=== PATIENT | female | born 1980 | race Caucasian/White ===

== ENCOUNTER 2018-09-14 14:52 | Emergency (ER) | payer SELFPAY ==
[2018-09-14] MEDS ORDERED: CODEINE 30MG/APAP 300MG TAB ONE (16:17)
[2018-09-14] MEDS ORDERED: TETANUS & DIPHTHERIA TOX,ADULT 0.5 ML VIAL ONE (16:18)
--- NOTE | 2018-09-14 16:24 | EDPHYS ---
Physician Documentation [facility] Name: Rebeca Rocha Age: 38 yrs Sex: Female : 1980 Arrival Date: 09/14/2018 Time: 14:55 Bed 7 Private MD: ED Physician Jay Herzog HPI: 09/14 16:04 This 38 yrs old Female presents to ER via Ambulatory with complaints of Hand pm1 Burn. 16:04 The patient presents with a burn as a result of hot grease, while cooking, at home, is pm1 located on the palm of right hand. Onset: The symptoms/episode began/occurred just prior to arrival. Burn type and severity: 2nd degree: approximately 0.2% total body surface area of second degree injury. Associated signs and symptoms: none. Pertinent negatives: singed hair at nares, soot at nares, The patient did not suffer any apparent inhalation injury, The patient had no loss of consciousness. The patient has not experienced similar symptoms in the past. The patient has not recently seen a physician. 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 - Social history:: Smoking status: Patient uses tobacco products, smokes one pack cigarettes per day. - Ebola Screening: : No symptoms or risks identified at this time. ROS: 16:04 Constitutional: Negative for fever, chills, and weight loss, Eyes: Negative for injury, pm1 pain, redness, and discharge, ENT: Negative for injury, pain, and discharge, Neck: Negative for injury, pain, and swelling, Cardiovascular: Negative for chest pain, palpitations, and edema, Respiratory: Negative for shortness of breath, cough, wheezing, and pleuritic chest pain, Abdomen/GI: Negative for abdominal pain, nausea, vomiting, diarrhea, and constipation, Back: Negative for injury and pain, MS/Extremity: Negative for injury and deformity. 16:04 Neuro: Negative for headache, weakness, numbness, tingling, and seizure. 16:04 Skin: Positive for burn, of the palm of right hand. Exam: 16:04 Constitutional: This is a well developed, well nourished patient who is awake, alert, pm1 and in no acute distress. 16:04 Head/Face: Normocephalic, atraumatic. 16:04 Cardiovascular: Regular rate and rhythm with a normal S1 and S2. No gallops, murmurs, or rubs. No pulse deficits. Respiratory: Lungs have equal breath sounds bilaterally, clear to auscultation and percussion. No rales, rhonchi or wheezes noted. No increased work of breathing, no retractions or nasal flaring. 16:04 Skin: Appearance: normal except for affected area, injury, burn(s), 2nd degree burn injury covers approximately 0.2% of the total body surface area, and is located on the palm of right hand to 2nd and 3rd finger. 16:04 Neuro: Orientation: is normal, Motor: is normal, moves all fours, Sensation: is normal, no obvious gross deficits, Gait: is steady, at a normal pace, without difficulty. Vital Signs: 14:56 BP 141 / 95; Pulse 113; Resp 16; Temp 97.4; Pulse Ox 98% on R/A; Weight 72.57 kg; la1 Height 5 ft. 6 in. (167.64 cm); 17:07 BP 135 / 89; Pulse 89; Resp 17 S; Temp 97.6(O); Pulse Ox 99% on R/A; ca1 14:56 Body Mass Index 25.82 (72.57 kg, 167.64 cm) la1 MDM: 15:16 Patient medically screened. pm1 16:04 ED course: Patient offered Morphine IM and IV. Patient refused. Patient wants Tylenol pm1 #3 for her pain. 16:18 Data reviewed: vital signs. Data interpreted: Pulse oximetry: on room air is 98 %. pm1 Interpretation: normal. Counseling: I had a detailed discussion with the patient and/or guardian regarding: the historical points, exam findings, and any diagnostic results supporting the discharge/admit diagnosis, the need for outpatient follow up, Burn clinic for reevaluation and treatment, to return to the emergency department if symptoms worsen or persist or if there are any questions or concerns that arise at home. 09/14 16:18 Order name: Wound Care; Complete Time: 16:30 pm1 Administered Medications: 16:04 Drug: Tylenol #3 (300 mg-30 mg) 1 tablet Route: PO; ca1 16:39 Follow up: Response: No adverse reaction; Pain is unchanged, physician notified ca1 16:06 CANCELLED (Patient Refused; Pt had Tetanus shot in 2017): Tetanus-Diphtheria Toxoid ca1 Adult 0.5 ml IM once 16:39 Drug: Zofran 4 mg Route: PO; ca1 17:07 Follow up: Response: No adverse reaction ca1 16:45 Drug: morphine 4 mg Route: IM; Site: right deltoid; ca1 17:07 Follow up: Response: No adverse reaction; Pain is decreased ca1 Disposition: 09/14/18 16:23 Discharged to Home. Impression: Burn of second degree of right hand, unspecified site. - Condition is Stable. - Discharge Instructions: Burn Care, Adult, Second-Degree Burn. - Prescriptions for Tylenol- Codeine #3 300-30 mg Oral Tablet - take 2 tablet by ORAL route every 6 hours As needed; 30 tablet. - Medication Reconciliation Form, Thank You Letter, Antibiotic Education, Prescription Opioid Use, Work release form form. - Follow up: Emergency Department; When: As needed; Reason: Worsening of condition. Follow up: Private Physician; When: 2 - 3 days; Reason: Recheck today's complaints, Continuance of care, Re-evaluation by your physician. - Problem is new. - Symptoms have improved. - Notes: Apply topical bacitracin 3 times per day to your burn injury. Follow up at the following clinic: [facility] [address] [place] [address] 8th floor 8AM - 4:30 PM M - F [phone] Addendum: 09/19/2018 02:09 Co-signature as Attending Physician, Jay Herzog MD. m a2 Signatures: Ricki Balderas, RN RN la1 Blayne Cannon, NEDA LOADING CHECKER pm1 Jay Herzog MD MD ma2 Snow Blevins RN RN ca1 Corrections: (The following items were deleted from the chart) 09/14 16:06 15:25 Tetanus-Diphtheria Toxoid Adult 0.5 ml IM once ordered. pm1 ca1 17:10 16:23 09/14/2018 16:23 Discharged to Home. Impression: Burn of second degree of right ca1 hand, unspecified site. Condition is Stable. Forms are Medication Reconciliation Form, Thank You Letter, Antibiotic Education, Prescription Opioid Use. Follow up: Emergency Department; When: As needed; Reason: Worsening of condition. Follow up: Private Physician; When: 2 - 3 days; Reason: Recheck today's complaints, Continuance of care, Re-evaluation by your physician. Problem is new. Symptoms have improved. pm1
--- NOTE | 2018-09-14 16:24 | ER ---
Nurse's Notes [facility] Name: Rebeca Rocha Age: 38 yrs Sex: Female : 1980 Arrival Date: 09/14/2018 Time: 14:55 Bed 7 Private MD: Diagnosis: Burn of second degree of right hand, unspecified site Presentation: 09/14 14:57 Presenting complaint: Patient states: I burned my right hand in grease at home, la1 blistering burn to to right fingers and hand. I took 800mg ibuprofen at home and its not helping at all. Transition of care: patient was not received from another setting of care. Onset of symptoms was September 14, 2018. Risk Assessment: Do you want to hurt yourself or someone else? Patient reports no desire to harm self or others. Initial Sepsis Screen: Does the patient meet any 2 criteria? No. Patient's initial sepsis screen is negative. Does the patient have a suspected source of infection? No. Patient's initial sepsis screen is negative. Care prior to arrival: None. 14:57 Method Of Arrival: Ambulatory la1 14:57 Acuity: ASTON 4 la1 Triage Assessment: 15:16 General: Appears in no apparent distress. Behavior is cooperative, appropriate for age, ca1 crying. Respiratory: Airway is patent Respiratory effort is even, unlabored, Respiratory pattern is regular, symmetrical, Breath sounds are clear bilaterally. Injury Description: Burn was sustained less than 30 minutes ago. Patient sustained second-degree burn(s) to Right first web space and outer aspect of right palm and palm of right hand. 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 - Social history:: Smoking status: Patient uses tobacco products, smokes one pack cigarettes per day. - Ebola Screening: : No symptoms or risks identified at this time. Screenin:13 Abuse screen: Denies threats or abuse. Denies injuries from another. Nutritional ca1 screening: No deficits noted. Tuberculosis screening: No symptoms or risk factors identified. Fall Risk None identified. Assessment: 15:13 General: Appears in no apparent distress. Behavior is cooperative, crying. Pain: ca1 Complains of pain in right hand Pain currently is 10 out of 10 on a pain scale. Neuro: Level of Consciousness is awake, alert, obeys commands, Oriented to person, place, time, situation. Derm: Skin is healthy with good turgor, Skin is pink, warm \T\ dry. blisters from burn on palmar aspect of R hand. Musculoskeletal: Circulation, motion, and sensation intact. Capillary refill < 3 seconds, Range of motion: intact in all extremities. Injury Description: Burn was sustained less than 30 minutes ago. Patient sustained second-degree burn(s) to palm of right hand, outer aspect of right palm and Right first web space. 16:40 Reassessment: Patient appears in no apparent distress at this time. Patient is alert, ca1 oriented x 3, equal unlabored respirations, skin warm/dry/pink. Attempted to dress wound. Pt complains of pain and refused dressing. Notified provider. Meds ordered. 17:07 Reassessment: Patient appears in no apparent distress at this time. Patient is alert, ca1 oriented x 3, equal unlabored respirations, skin warm/dry/pink. Dressed wound. Applied triple antibiotic on burnt area, dressed wound. PT tolerated well. Vital Signs: 14:56 BP 141 / 95; Pulse 113; Resp 16; Temp 97.4; Pulse Ox 98% on R/A; Weight 72.57 kg; la1 Height 5 ft. 6 in. (167.64 cm); 17:07 BP 135 / 89; Pulse 89; Resp 17 S; Temp 97.6(O); Pulse Ox 99% on R/A; ca1 14:56 Body Mass Index 25.82 (72.57 kg, 167.64 cm) la1 ED Course: 14:55 Patient arrived in ED. mr 14:57 Arm band placed on left wrist. la1 14:58 Triage completed. la1 15:00 Snow Blevins, RICARDO is Primary Nurse. ca1 15:03 Blayne Cannon NP is PHCP. pm1 15:03 Jay Herzog MD is Attending Physician. pm1 15:13 Patient has correct armband on for positive identification. Bed in low position. Call ca1 light in reach. Side rails up X 1. Pulse ox on. NIBP on. hand iced water. 17:05 No provider procedures requiring assistance completed. Patient did not have IV access ca1 during this emergency room visit. Dressings: Kerlix X 1; right hand non-adherent dressing x 2 right hand. Administered Medications: 16:04 Drug: Tylenol #3 (300 mg-30 mg) 1 tablet Route: PO; ca1 16:39 Follow up: Response: No adverse reaction; Pain is unchanged, physician notified ca1 16:06 CANCELLED (Patient Refused; Pt had Tetanus shot in 2017): Tetanus-Diphtheria Toxoid ca1 Adult 0.5 ml IM once 16:39 Drug: Zofran 4 mg Route: PO; ca1 17:07 Follow up: Response: No adverse reaction ca1 16:45 Drug: morphine 4 mg Route: IM; Site: right deltoid; ca1 17:07 Follow up: Response: No adverse reaction; Pain is decreased ca1 Outcome: 16:23 Discharge ordered by MD. pm1 17:08 Discharged to home ambulatory, with family. ca1 17:08 Condition: stable 17:08 Discharge instructions given to patient, Instructed on discharge instructions, follow up and referral plans. medication usage, wound care, Demonstrated understanding of instructions, follow-up care, medications, wound care, Prescriptions given X 1. 17:10 Patient left the ED. ca1 Signatures: Sena Singh Ricki Balderas RN RN la1 Blayne Cannon, NEDA ASSISTANT CHIEF TRAIN DISPATCHER pm1 Snow Blevins RN RN ca1 Corrections: (The following items were deleted from the chart) 15:02 14:57 Presenting complaint: Patient states: I burned my right hand in grease at home, la1 blistering burn to to right fingers and hand. la1
[2018-09-14] MEDS ORDERED: MORPHINE 4 MG/ML SYR ONE (16:50)
[2018-09-14] MEDS ORDERED: ONDANSETRON 4 MG (ODT) TAB ONE (16:53)
== END 2018-09-14 17:10 | disposition home or self-care (01) ==
LOC: ER 14:52
DX: T23.251A Burn of second degree of right palm, initial encounter (principal); X10.2XXA Contact with fats and cooking oils, initial encounter; Y93.G3 Activity, cooking and baking; Y92.009 Unspecified place in unspecified non-institutional (private) residence as the place of occurrence of the external cause; F17.210 Nicotine dependence, cigarettes, uncomplicated
CPT/HCPCS: 90714; 96372; 99283